=== PATIENT | male | born 1960 | race Caucasian/White ===

== ENCOUNTER → 2017-04-02 | Outpatient (CLI) | payer OTHER ==
[~2017-04-02] MED LIST: REGADENOSON 0.4 MG/5 ML SYR ONE
--- NOTE | 2017-04-08 15:03 | Myocardial Perfusion Study ---
Myocardial Perfusion Study Rpt Myocardial Perfusion Study Rpt Date of Service 04/08/17 Myocardial Perfusion Study Rpt Procedure: 1. Myocardial perfusion study performed in multiple views/images 2. Lexiscan pharmacologic stress ECG Indications: 1. Ischemic cardiomyopathy 2. Heart failure 3. Syncope Consent: Informed written consent was obtained prior to the procedure. Ordering physician: Dr. Murillo Procedural notes: I was made aware that this myocardial perfusion study was performed and pending interpretation on 04/08/2017. Procedural details: For the stress portion of the study, Lexiscan 0.4 mg was intravenously administered followed by a saline flush. This was followed by 29.4 mCi of technetium 99m Cardiolite, injected at 11:08 a.m. on 04/02/2017. 30 minutes following the injection, imaging of the heart was performed in multiple projections. For the rest portion of the study, 11 mCi technetium 99m Cardiolite was injected intravenously at 9:25 a.m. on 04/02/2017. 1 hour following the injection, imaging of the heart was performed in the same projections. Lexiscan stress ECG: Resting ECG demonstrated: Sinus bradycardia at 58 bpm. PVC. Anterior infarct. Maximum heart rate: 98 bpm Resting blood pressure: 115/73 mmHg Maximum blood pressure: 140/70 mmHg Maximal, age-predicted heart rate: 59 % Significant ST changes: None Arrhythmia: None Symptoms: Shortness of breath. No angina. Findings: Rotating raw imaging demonstrated no significant lung uptake. There is no significant motion artifact. Heart size appeared enlarged. Myocardial perfusion demonstrated a large area of severely reduced uptake involving the apex, which was fixed in post stress and rest imaging. There was a large area with mildly to moderately reduced uptake involving the mid to distal anterior, base to distal anteroseptum, base to distal septum, base to distal inferoseptum , and base to distal inferior wall segments. These defects were fixed in post stress and rest imaging with partial reversibility involving the base to mid inferior wall, suggesting infarct with mild elroy-infarct ischemia of the inferior wall. Ejection fraction: 24 % Wall motion: Akinesis involving the apex and distal wall segments. Otherwise, global hypokinesis sparing the anterolateral and lateral base. No significant transient ischemic dilation. Impression: 1. Abnormal myocardial perfusion study suggesting large myocardial infarction involving LAD and RCA territories. 2. Mild elroy-infarct ischemia involving the inferior wall from base to mid ventricle. 3. Severely reduced LV systolic function. EF 24%. 4. Akinesis of the apex and distal left ventricular wall segments. Otherwise, global hypokinesis with relative sparing of the anterolateral and lateral basal segments. 5. Lexiscan induced dyspnea. 6. Enlarged left ventricle. 7. Nondiagnostic Lexiscan ECG.
== END ==
LOC: C.NUCL 09:02
PROVIDERS: ATTEND Internal Medicine
DX: E78.5 Hyperlipidemia, unspecified (principal); I11.0 Hypertensive heart disease with heart failure; J44.9 Chronic obstructive pulmonary disease, unspecified; J45.30 Mild persistent asthma, uncomplicated; I25.5 Ischemic cardiomyopathy

== ENCOUNTER → 2017-04-22 | Outpatient (CLI) | payer OTHER ==
[2017-04-22 14:41] LABS: BASO % 0.4 %; BASO ABS # 0.04 K/uL (0-0.2); COMPLETE YES; EOS % 0.8 %; HEMATOCRIT 45.4 % (42-52); IG% 0.1 %; LYMPH ABS # 1.62 K/uL (1.2-3.4); MEAN CELL VOLUME 88.2 fL (80-100); MEAN CORPUSCULAR HEMOGLOBIN 30.3 pg (25-34); MEAN CORPUSCULAR HGB CONC 34.4 g/dl (32-36); MEAN PLATELET VOLUME 10.1 fL (7.4-10.4); MONO % 3.8 %; NEUT % 78.9 %; PLATELET COUNT 249 K/uL (130-400); RED BLOOD COUNT 5.15 M/uL (4.7-6.1); WHITE BLOOD COUNT 10.12 K/uL (4.8-10.8)
[2017-04-22 14:49] LABS: PARTIAL THROMBOPLASTIN RATIO 1.1; PROTHROMBIN TIME (PATIENT) 10.7 SECONDS (9.0-12.0)
[2017-04-22 14:52] LABS: BLOOD UREA NITROGEN 12 mg/dl (7-18); BUN/CREATININE RATIO 14.1 (10-20); CALCIUM 9.2 mg/dl (8.5-10.1); CARBON DIOXIDE 28 mmol/L (21-32); CHLORIDE 106 mmol/L (98-107); CREATININE 0.87 mg/dl (0.60-1.40); GLUCOSE 101 mg/dl (70-99); POTASSIUM 4.7 mmol/L (3.5-5.1); SODIUM 139 mmol/L (136-145)
== END | disposition home or self-care (01) ==
LOC: C.LAB1850 12:43
PROVIDERS: ATTEND Physician Assistant Medical
DX: I25.5 Ischemic cardiomyopathy (principal)

== ENCOUNTER 2017-05-05 06:27 | Observation (INO) | payer OTHER ==
[2017-05-05] VITALS (9 sets, daily range): BP systolic 120–144; BP diastolic 78–92; PULSE 58–69; TEMP 36.4–36.7; O2SAT 95–98; Ht 162.6 cm; Wt 68.1 kg
[~2017-05-05] VITALS: Ht 162.6 cm; Wt 68.1 kg
[2017-05-05] MEDS ORDERED: ISOSPOW2 PO (07:35)
[2017-05-05] MEDS ORDERED: NITR0.4S UT (07:35)
[2017-05-05] MEDS ORDERED: CARV3.122 PO (07:35)
[2017-05-05] MEDS ORDERED: ASPI81TA28 PO (07:35)
[2017-05-05] MEDS ORDERED: ATOR-26 PO (07:35)
[2017-05-05] MEDS ORDERED: CLOP1TAB15 PO (07:35)
[2017-05-05] MEDS ORDERED: NiCARDipine HCL INJ 2.5 MG/ML 10 ML AMP ONE (08:08)
[2017-05-05] MEDS ORDERED: HEPARIN SOD (PORCINE) 1000 UNIT/ML 10 ML VIAL ONE ×2 (08:09→09:57)
[2017-05-05] MEDS ORDERED: ASPIRIN 81 MG CHEW ONE (08:09)
[2017-05-05] MEDS ORDERED: FENTANYL CITRATE INJ 50 MCG/1 ML 2 ML VIAL ONE (08:10)
[2017-05-05] MEDS ORDERED: MIDAZOLAM HCL 1 MG/ML 2ML VIAL ONE ×2 (08:10→09:02)
[2017-05-05] MEDS ORDERED: NITROGLYCERIN/D5W 100MCG/ML 20ML SYR ONE (08:10)
--- NOTE | 2017-05-05 08:10 | History & Physical Bridge Note ---
H&P Re-Evaluation Bridge Note: I have examined the patient, reviewed the History & Physical and in the interval since the performance of the History & Physical I have noted the following changes of clinical significance: No changes noted
--- NOTE | 2017-05-05 08:11 | Procedure Note ---
Pre-Mod Sedation Assessment General Date of Moderate Sedation: May 05, 2017. Vital Signs: Vital Signs Past 12 Hours Date Time Temp Pulse Resp B/P (MAP) Pulse Ox O2 Delivery O2 Flow Rate FiO2 05/05/17 07:27 36.7 58 16 120/79 98 Room Air Review Cardiovascular: regular rate, rhythm Airway Class: III Pre-Sedation Airway Assessment Oral Cavity: WNL Able to Visualize Vocal Cords: No Short Thick Neck: No Hx of Sleep Apnea: No Smoking Status: Never Smoker Mallampati Classification: Class III ASA Classification: Class III Procedure Planning Contraindications-for Mod Sed: None Yes Notes The planned sedation has been discussed with the patient and consent obtained. I have identified the patient, determined the appropriateness of sedation and have assessed the patient immediately prior to the procedure. All medicine(s) and interventions are by my order.
--- NOTE | 2017-05-05 08:55 | [facility] Operative Report ---
Operative Report Date of Service May 05, 2017. Operative Report Procedure performed: Selective coronary angiography Staff planning feeder: Santana Duffy MD Indication: The patient is a 57-year-old gentleman with a history of coronary artery disease having previously undergone percutaneous intervention on more than 1 occasion. He is evaluated in the outpatient setting with noninvasive testing. He was noted to have ischemia primarily in an inferior distribution on perfusion study. He has also been having symptoms of chest pain consistent with angina. Based on his history and the result of noninvasive testing is felt to be a good candidate for coronary angiography. Procedure detail: The patient was informed of the risks benefits and alternatives to the intended procedure. He understood such which proceed. He is taken to the cardiac catheterization suite in a fasting state. Conscious sedation was administered per protocol the patient was monitored electrocardiographically throughout today 's procedure. The right wrist area was prepped and draped in usual sterile fashion. An area above the radial artery was subsequently anesthetized using subcutaneous administration of a lidocaine solution. Right radial artery was and access using Seldinger technique and a arterial sheath was placed at the site over guidewire. This sheath was used to facilitate passage of the cardiac catheters for engagement of the coronary arteries. Selective coronary angiography was performed in multiple orthogonal views prior to removal of the catheters. Based on the results of testing the patient was referred for percutaneous intervention. The patient tolerated procedure well. There were no immediate complications. Equipment used: [employer] TrapEase 3.5 Five Afghan JL4 Findings: Hemodynamics: Opening aortic pressure was 106/67 Coronary angiography: Left main: The left main was normal in size and caliber and bifurcated into the left anterior descending left circumflex artery. There was approximate 20% tapering at its distal portion Left anterior descending: This was a large transapical vessel. It had a prior stent in its proximal portion. There was significant InStent restenoses throughout the prior area of stenting. There was a large septal platform consultant with a 99% stenosis. There was a large 1st diagonal branch with approximately 50% ostial stenosis. The remainder of the vessel was free of significant angiographic disease. Left circumflex: Left circumflex was a large codominant vessel. It had previously been stented between om 1 and om 2. There was approximately 50% in stent restenoses at that segment. Left circumflex produced a large om 1 and om 2 with a diminutive OM 3 that was subtotally occluded at its origin. Right coronary artery: The right coronary appeared to be non dominant was 100% occluded in its proximal portion. Impression: Occlusive disease involving InStent restenoses of the proximal LAD Plan: Patient will be referred for immediate percutaneous intervention involving the segment I attest to the content of the Intraoperative Record and any orders documented therein. Any exceptions are noted below.
[2017-05-05] MEDS ORDERED: CLOPIDOGREL BISULFATE 300 MG TAB PO ONE (10:08)
--- NOTE | 2017-05-05 10:14 | Procedure Note ---
Post-Mod Sedation Assessment General Date of Moderate Sedation May 05, 2017. Vital Signs: Vital Signs Past 12 Hours Date Time Temp Pulse Resp B/P (MAP) Pulse Ox O2 Delivery O2 Flow Rate FiO2 05/05/17 07:27 36.7 58 16 120/79 98 Room Air Review - Discharge Criteria Vital Signs Stable: Yes Alert/Oriented/Conversant: Yes Returned to Baseline Mental St: Yes Nausea Absent/Minimal: Yes Pain/Discomfort/Absent/Minimal: Yes Normal/Baseline Respirations: Yes Active Bleeding?: N/A Pt Received D/C Instructions: N/A Prescriptions Given: None Specific Proced. D/C Criteria Distal Pulses Present (Cardiac: Yes Groin site assessed-Card Cath: N/A Voided Prior To Discharge: N/A Discharged Patients Adult Escort/Transportation: Yes
--- NOTE | 2017-05-05 10:33 | Cardiac Catheterization ---
Procedure Note Procedure Date May 05, 2017. Pre-Procedure Diagnosis Cardiomyopathy AUC Score 7 Post-Procedure Diagnosis Severe CAD, Successful PCI Procedure(s) Performed Drug Eluting Stent, IVUS Veneer Production Machine Operator Philip Hand Expansion Envelope Maker(s) Noah Estimated Blood Loss 15 Medication(s) Fentanyl, Heparin, Nicardipine, Nitroglycerin, Versed, Lidocaine 1% Summary of Findings Indication: LV dysfunction, In-stent restenosis Access: 6Fr slender exchanged to Long 6Fr sheath due to radial artery spasm Catheters: EBU 3.5 guide Findings: For full details of patient's coronary angiography please see cath report dictated by Dr. Driscoll. Briefly patient with severe cardiomyopathy and + positive stress test. Angiography revealed severe proximal ISR in LAD and subtotally occluded distal circumflex at site of prior stent. IVUS of LAD revealed 70-80% ISR in proximal aspect of stent. Also found to have 50% stenosis distal to prior stent after take-off of 2nd diagonal. LM with at most 20% distal disease -- PCI -- Antithrombotic therapy: Heparin, Clopidogrel Procedure: LM cannulated with EBU 3.5 guide Prowater wire passed across lesion into distal LAD In-stent LAD lesion predilated with 3.0 compliant balloon Dilated lesion stented with 3.5 x 23 Xience BRANDIE ending just proximal to 2nd diagonal IVUS showed underexpanded stent in mid segment Stent post-dilated with 3.75 noncompliant balloon IC vasodilators administered for spasm Post procedure SUMIT 3 flow, stent well expanded with minimal residual stenosis and no apparent cardiac complications. Brief attempt to cross distal circumflex sub-total occlusion with whisper wire/ balloon unsuccessful. Arterial Closure: TR Band Summary: 1. Severe proximal LAD In-stent restenosis. 2. Successful PCI of proximal-mid LAD with 3.5 x 23 Xience BRANDIE Recommendations: To PCU for continued monitoring Reloaded with clopidogrel 300mg Continue dual-antiplatelet therapy with ASA/Clopidogrel for 1 year, likely indefinitely Repeat LV assessment, possible ICD per Dr. Driscoll. Hemodynamics Rest Ao: 124/77/97 Final Ao: 133/74/99 LV: -- Recommendations PCI without planned CABG Specimens None Radiation Exposure (mGy) 1988 Contrast (mls) 170 Visi Fluids (cc crystalloids) 125 NSS Drains None Anesthesia Moderate Procedural Complication(s) None Disposition PCU ACC Data Cardiac Status Clinical evaluation leading to the procedure CAD Presntation: Positive Stress Test Anginal Classification: CCS III Heart Failure: Yes, NYHA Class: CCS II Cardiogenic Shock w/in 24Hrs: No Cardiac Arrest w/in 24Hrs: No Imaging studies past 6 months: Yes Stress studies past 6 months: Yes Stress Echocardiogram: Yes - Positive, Risk/Extent of Ischemia (High) Diagnostic Physician's Name: Santana Driscoll MD Status: Elective Closure Device Percutaneous Entry Location: Radial Closure Device: Radial Band Recommendations: PCI without planned CABG PCI Indication: + Stress Test Lesion Segment Name: proximal LAD Culprit Artery: Yes Stenosis Prior to Rx (%): 70-80 Chronic Total Occlusion: No IVUS: Yes FFR: No Pre-Procedure SUMIT Flow: 3 Previously Treated Lesion: Yes Treated Lesion: Timeframe: greater than 2 years Treated with Stent: Yes In-Stent Restenosis: Yes In-Stent Thrombosis: No Stent Type: type unknown Lesion Complexity: Non-High/Non-C Lesion Length (mm): 20 Thrombus Present: No Bifurcation Lesion: No Guidewire Across Lesion: Yes Guidewire: Stenosis Post-Procedure (%): 0 Post-Procedure SUMIT Flow: 3 Device(s) Deployed: Yes Intraprocedure Events Significant Dissection: No Perforation: No
[2017-05-05] MEDS ORDERED: ACETAMINOPHEN 325 MG TAB PO PRN (10:45)
[2017-05-05] MEDS ORDERED: NITROGLYCERIN 0.4 MG SL PER TAB CHARGE UT SCH (10:45)
[2017-05-05] MEDS: SODIUM CHLORIDE 0.9% 1000ML 1,000 ML IV SCH ×2 (11:04→18:51)
[2017-05-05] MEDS ORDERED: IV FLUIDS COMPLETED PRN (13:45)
[2017-05-05] MEDS: PATIENT'S ALLERGY INFO NEEDS ENTERED SCH ×2 (13:59→14:35)
[2017-05-05] MEDS ORDERED: INFLUENZA ADMINISTRATION CHARGE ONE (15:00)
[2017-05-05] MEDS ORDERED: INFLUENZA VIRUS QUAD VACCINE 0.5 ML SYR IM. ONE (15:00)
[2017-05-05] MEDS ORDERED: PNEUMOCOCCAL ADMINISTRATION CHARGE ONE (15:00)
[2017-05-05] MEDS ORDERED: PNEUMOCOCCAL POLYSACCHARIDES 25 MCG/0.5 ML VIAL/SYR IM. ONE (15:00)
[2017-05-05] MEDS: CARVEDILOL 3.125 MG TAB PO SCH (21:04)
[2017-05-06] VITALS: BP 145/94; PULSE 60; TEMP 36.5; O2SAT 96
[2017-05-06] MEDS: SODIUM CHLORIDE 0.9% 1000ML 1,000 ML IV SCH (03:03)
[2017-05-06 04:30] VITALS: BP 125/79; PULSE 71; TEMP 36.4; O2SAT 98
[2017-05-06 07:27] LABS: BASO % 0.5 %; BASO ABS # 0.03 K/uL (0-0.2); COMPLETE YES; EOS % 1.9 %; HEMATOCRIT 41.2 % (42-52); IG% 0.2 %; LYMPH % 18.4 %; LYMPH ABS # 1.18 K/uL (1.2-3.4); MEAN CELL VOLUME 87.8 fL (80-100); MEAN CORPUSCULAR HEMOGLOBIN 30.9 pg (25-34); MEAN CORPUSCULAR HGB CONC 35.2 g/dl (32-36); MONO % 5.1 %; NEUT % 73.9 %; PLATELET COUNT 212 K/uL (130-400); RED BLOOD COUNT 4.69 M/uL (4.7-6.1); WHITE BLOOD COUNT 6.41 K/uL (4.8-10.8)
[2017-05-06 07:41] VITALS: BP 142/88; PULSE 72; TEMP 36.7; O2SAT 98
[2017-05-06] MEDS: CARVEDILOL 3.125 MG TAB PO SCH (07:51)
[2017-05-06 07:54] LABS: CALCIUM 8.7 mg/dl (8.5-10.1); CREATININE 0.74 mg/dl (0.60-1.40); POTASSIUM 4.2 mmol/L (3.5-5.1)
[2017-05-06 08:00] VITALS: O2SAT 98
--- NOTE | 2017-05-06 08:43 | Discharge Instructions ---
Discharge Instructions Date of Service May 06, 2017. Admission Reason for Admission: Cad, Ischemic Cardiomyopathy Discharge Discharge Diagnosis / Problem: Coronary artery disease, angina, ischemic cardiomyopathy Discharge Goals Goal(s): Improve function, Improve disease control, Therapeutic intervention Activity Recommendations Activity Limitations: as noted below Lifting Limitations: no more than 10 pounds Shower/Bathe: no limitations Driving or Machine Use: no limitations Refrain from vigorous use of the right wrist for for 5 days . Current Hospital Diet Patient's current hospital diet: AHA Diet (Heart Healthy) Discharge Diet Recommended Diet: AHA Diet (Heart Healthy) Procedures Procedures Performed: Coronary angiography and stenting of the left anterior descending artery via the right radial approach Pending Studies Studies pending at discharge: no Medical Emergencies . Who to Call and When: Medical Emergencies: If at any time you feel your situation is an emergency, please call 911 immediately. . Non-Emergent Contact Non-Emergency issues call your: Assistant Dean Of Students Call Non-Emergent contact if: wound has increased redness, wound has increased pain . . "Provider Documentation" section prepared by Hernandez Driscoll. . VTE Core Measure Inpt VTE Proph given/why not?: Treatment not indicated
--- NOTE | 2017-05-06 08:46 | Discharge Summary ---
Discharge Summary Admission Date: May 05, 2017 at 10:36 Discharge Date: May 06, 2017 Discharge Disposition: Home Primary Diagnosis: Coronary artery disease, ischemic cardiomyopathy Procedures: Cardiac catheterization with stenting of the left anterior descending via the right radial approach Discharge Instructions Last Recorded Wt (Kilograms): 68.100 Activity Recommendations: limitations as noted below Return to School/Work: no limitations Diet At Discharge: resume previous diet Allergies: Coded Allergies: No Known Allergies (Unverified , 05/05/17) Home Health Services: none Additional Instructions: Refrain from vigorous activity involving the right wrist for period of 5 days Special Care: Call your doctor if: * Temperature above 101 degrees * Pain not relieved by pain medicine ordered * There is increased drainage or redness from any incision * You have any unanswered questions or concerns. Avoid all tobacco products. If you need help to stop smoking, call [place]'s FREE QUITLINE at . This is a free call. Admission HPI Patient is a 57-year-old gentleman with a known history of coronary artery disease and associated ischemic cardiomyopathy. He was noted on noninvasive testing to have evidence of ischemia. This was in conjunction with symptoms of chest pain. He was brought to the hospital for elective coronary angiography and possible placement of an ICD pending the results of his angiogram. Admission Physical Exam Right wrist access site is without hematoma or drainage . No ecchymosis. Good perfusion and function of the right hand. Hospital Course Patient underwent the procedure noted above the day of admission. He had a successful intervention involving the proximal LAD at the site of prior stenting. The remainder of his hospitalization was uncomplicated. He did not undergo implantation of an ICD due to the intervention. At the time of discharge she was feeling well. He had no pain at the access site. He has been ambulatory around the room without significant dyspnea or chest discomfort. Total time spent on discharge = This includes examination of the patient, discharge planning, medication reconciliation, and communication with other providers.
[2017-05-06 08:54] VITALS: BP 142/88; PULSE 72; TEMP 36.7; O2SAT 98
[2017-05-06] MEDS ORDERED: ATORVASTATIN 40 MG TAB PO SCH (09:00)
[2017-05-06] MEDS ORDERED: CLOPIDOGREL BISULFATE 75 MG TAB PO SCH (09:00)
[2017-05-06] MEDS ORDERED: ASPIRIN 81 MG ECTAB PO SCH (09:00)
== END 2017-05-06 11:00 | disposition home or self-care (01) ==
LOC: C.ACU 06:27 → ENRESERV 09:57 → C.2T 10:36
PROVIDERS: ADMIT Internal Medicine Interventional Cardiology; ATTEND Internal Medicine Interventional Cardiology
DX: I25.118 Atherosclerotic heart disease of native coronary artery with other forms of angina pectoris (principal); I25.5 Ischemic cardiomyopathy; I11.0 Hypertensive heart disease with heart failure; I50.22 Chronic systolic (congestive) heart failure; E78.5 Hyperlipidemia, unspecified; I25.2 Old myocardial infarction; J44.1 Chronic obstructive pulmonary disease with (acute) exacerbation; F17.200 Nicotine dependence, unspecified, uncomplicated; Z79.899 Other long term (current) drug therapy; Z79.82 Long term (current) use of aspirin; Z79.02 Long term (current) use of antithrombotics/antiplatelets; Z82.5 Family history of asthma and other chronic lower respiratory diseases; Z82.49 Family history of ischemic heart disease and other diseases of the circulatory system; Z83.49 Family history of other endocrine, nutritional and metabolic diseases